=== PATIENT | male | born 1990 | race Asian ===

== ENCOUNTER 2022-10-13 11:51 | Emergency (ER) | payer OTHER ==
[2022-10-13 12:13] VITALS: BP 124/75
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
== END 2022-10-13 12:44 | disposition home or self-care (01) ==
LOC: ED 11:51
DX: F41.9 Anxiety disorder, unspecified (principal); V42.5XXA Car driver injured in collision with two- or three-wheeled motor vehicle in traffic accident, initial encounter; Y92.410 Unspecified street and highway as the place of occurrence of the external cause
CPT/HCPCS: 99281; 99282